=== PATIENT | male | born 1965 | race Caucasian/White ===

== ENCOUNTER 2019-07-10 16:02 | Outpatient (CLI) | payer OTHER ==
--- NOTE | 2019-07-10 16:34 | RAD ---
PA AND LATERAL VIEWS CHEST: 07/10/19 HISTORY: Dyspnea. FINDINGS: Comparison made with exam of 06/07/19. The heart size is normal. No focal areas of consolidation, pneumothoraces or pleural effusions are se en. There are mild degenerative changes in the spine. IMPRESSION: No acute process. POS: [facility]
--- NOTE | 2019-07-10 17:10 | NM ---
VQ SCAN: HISTORY: Other pulmonary embolism without acute core pulmonale TECHNIQUE: A ventilation/perfusion scan was performed using 21.3 mCi xenon-133 by inhalation for the ventilation study followed by the intravenous administration of 5.5 mCi technetium 99m-MAA for the perfusion scan. CORRELATION: Chest radiograph from same date. FINDINGS: Homogeneity is noted in the tracer distribution to the lung swift bilaterally on ventilation and per fusion scans. No mismatched pleural-based, wedge-shaped, segmental or subsegmental perfusion defects are identified . There is tracer retention on the washout phase of the ventilation scan, compatible with COPD. IMPRESSION: Very low probability for pulmonary embolism.
== END 2019-07-10 16:03 | disposition home or self-care (01) ==
LOC: NM 16:02
PROVIDERS: ATTEND Internal Medicine Critical Care Medicine
DX: I26.99 Other pulmonary embolism without acute cor pulmonale (principal)
CPT/HCPCS: 71046; 78582; A9540; A9558